=== PATIENT | female | born 1960 | race Caucasian/White ===

== ENCOUNTER 2023-10-10 16:40 | Emergency (ER) | payer OTHER ==
[~2023-10-10] VITALS: Ht 157.5 cm; Wt 86.4 kg
[~2023-10-10 16:40] MED LIST: CRESTOR20 MG PO; CYCLOBENZAPRINE10 M1 PO; CYMBALTA60 M1 PO; DESYREL 100MG100 MG PO; EFFIENT10 M1 PO; HCTZ 25MG25 MG PO; LEADER NIC21 MG/24 H TD; LOSARTAN POTAS100 MG PO; NITROSTAT0.4 M1 SL; POTASSIUM CHLO20 ME4 PO; VITAMIN D250 MC1 PO
[2023-10-10 18:00] VITALS: BP 132/79
[2023-10-10] MEDS ORDERED: CEPHALEXIN500 M1 PO (18:19)
[2023-10-10] MEDS ORDERED: Home Cephalexin 500 MG #2 CAP/PACK PO ONE (18:30)
== END 2023-10-10 18:30 | disposition home or self-care (01) ==
LOC: ED 16:40
DX: S02.2XXA Fracture of nasal bones, initial encounter for closed fracture (principal); S00.83XA Contusion of other part of head, initial encounter; Z88.2 Allergy status to sulfonamides; Z79.02 Long term (current) use of antithrombotics/antiplatelets; Z79.82 Long term (current) use of aspirin; W06.XXXA Fall from bed, initial encounter; Y92.009 Unspecified place in unspecified non-institutional (private) residence as the place of occurrence of the external cause

== ENCOUNTER 2024-07-29 15:08 | Emergency (ER) | payer OTHER ==
[~2024-07-29] VITALS: Ht 157.5 cm; Wt 86.4 kg
[~2024-07-29 15:08] MED LIST changes: +CEPHALEXIN500 M1 PO
[2024-07-29] MEDS ORDERED: Ketorolac 30 MG/ML VIAL IV ONE (15:30)
[2024-07-29] MEDS ORDERED: Ondansetron 4 MG/2 ML VIAL IV ONE (15:30)
[2024-07-29 15:38] LABS: HEMATOCRIT 42.3 % (37.0-47.0); HEMOGLOBIN 13.8 g/dL (12.5-16.0); MEAN CELL VOLUME 92 fl (78-100); MEAN CORPUSCULAR HEMOGLOBIN 30 pg (27-31); MEAN CORPUSCULAR HGB CONC 33 g/dL (33-37); MEAN PLATELET VOLUME 9.1 fl (7.4-10.4); PLATELET COUNT 408 K/mm3 (130-400); RED BLOOD COUNT 4.61 M/mm3 (4.10-5.30); RED CELL DISTRIBUTION WIDTH 13.2 % (11.5-14.5)
[2024-07-29 15:44] LABS: WHITE BLOOD COUNT 28.6 K/mm3 (4.8-10.8)
[2024-07-29] MEDS ORDERED: NS 1,000 ML IV SCH ×2 (15:45→17:15)
[2024-07-29] MEDS ORDERED: Piperacillin/Tazobactam Sodium 4.5 GM in NS 100 ML IV ONE (15:45)
[2024-07-29 15:46] LABS: ALBUMIN 4.1 g/dL (3.4-4.8)
[2024-07-29 15:49] LABS: TOTAL PROTEIN 8.1 g/dL (6.2-8.1)
[2024-07-29 15:51] LABS: TOTAL BILIRUBIN 1.4 mg/dL (0.2-1.2)
[2024-07-29] MEDS ORDERED: Iodixanol-320 100 ML BOTTLE IV ONE (16:11)
[2024-07-29] MEDS ORDERED: NS 100 ML IV SCH (16:12)
[2024-07-29 16:18] LABS: LYMPHOCYTE 12 % (20-51); MONOCYTE 3 % (3-10); NEUTROPHILS 85 % (42-75)
[2024-07-29] MEDS ORDERED: Morphine 4 MG/ML VIAL IV PRN (16:45)
[2024-07-29] MEDS ORDERED: DEXCOM G7 SENS1 EACH MC (17:26)
[2024-07-29] MEDS ORDERED: TRULICITY0.75 MG/0. SC (17:26)
[2024-07-29] MEDS ORDERED: ASPIRIN 81M81 MG/TA2 PO (17:27)
[2024-07-29 17:47] VITALS: BP 134/87
== END 2024-07-29 17:48 | disposition short-term general hospital (02) ==
LOC: ED 15:08
PROVIDERS: Nurse Practitioner Family
DX: K35.80 Unspecified acute appendicitis (principal); E87.20 Acidosis, unspecified
CPT/HCPCS: J1885; J2270; J2405; J2543; J7030; Q9967